=== PATIENT | male | born 1960 | race African-American/Black ===

== ENCOUNTER 2018-06-21 21:18 | Emergency (ER) | payer SELFPAY ==
[~2018-06-21] VITALS: Ht 170.2 cm; Wt 82.4 kg
[2018-06-22] MEDS ORDERED: PERCOCET 5/325M1 TAB PO (00:51)
[2018-06-22 01:12] VITALS: BP 138/89
== END 2018-06-22 01:12 | disposition home or self-care (01) | DRG 914 ==
LOC: ED 21:18
PROC: 2W3CX1Z Immobilization of Right Lower Arm using Splint (ICD-10-PCS; principal; 2018-06-22)
DX: S69.91XA Unspecified injury of right wrist, hand and finger(s), initial encounter (principal); M25.531 Pain in right wrist; M25.431 Effusion, right wrist; W01.0XXA Fall on same level from slipping, tripping and stumbling without subsequent striking against object, initial encounter; Y93.01 Activity, walking, marching and hiking; Y92.009 Unspecified place in unspecified non-institutional (private) residence as the place of occurrence of the external cause

== ENCOUNTER 2018-11-03 07:58 | Day surgery (SDC) | payer OTHER ==
[~2018-11-03] VITALS: Ht 167.6 cm; Wt 82.1 kg
[~2018-11-03 07:58] MED LIST: ASPIRIN81 MG PO; CLOPIDOGREL75 MG PO; NAPROXEN EC500 MG PO; PANTOPRAZOLE SO40 MG PO; PERCOCET 5/325M1 TAB PO; RANITIDINE300 MG PO; TOPROL XL25 M1 PO; ZOCOR20 M1 PO
[2018-11-03 08:26] LABS: BARBITURATES NEGATIVE (NEGATIVE); COCAINE NEGATIVE (NEGATIVE); METHADONE NEGATIVE (NEGATIVE); OXCYCODONE NEGATIVE (NEGATIVE); TETRAHYDROCANNABIONOL POSITIVE (NEGATIVE); TRICYLIC ANTIDEPRESSANTS NEGATIVE (NEGATIVE)
[2018-11-03 13:35] VITALS: BP 138/80
== END 2018-11-03 14:15 | disposition home or self-care (01) ==
LOC: ENDO 07:58
PROVIDERS: ATTEND Surgery
DX: D12.3 Benign neoplasm of transverse colon (principal); D12.5 Benign neoplasm of sigmoid colon; D12.8 Benign neoplasm of rectum; K57.31 Diverticulosis of large intestine without perforation or abscess with bleeding

== ENCOUNTER 2018-11-04 20:21 | Emergency (ER) | payer OTHER ==
[~2018-11-04] VITALS: Ht 170.2 cm; Wt 82.3 kg
[2018-11-04 21:11] LABS: HEMATOCRIT 43.9 % (39.0-50.0); HEMOGLOBIN 14.8 g/dl (14.0-18.0); IMMATURE GRANULOCYTES 0.4 % (0.0-5.0); MEAN CORPUSCULAR HGB 31.4 pG CALC (26.0-32.0); MEAN CORPUSCULAR HGB CONC 33.7 g/L CALC (32.0-36.0); NEUT# 10.98 thou/uL (1.82-7.42); RED BLOOD COUNT 4.72 mill/uL (4.70-6.10); RED CELL DISTRI WIDTH 13.7 % (11.5-15.5)
[2018-11-04 21:28] LABS: ALBUMIN 4.3 g/dL (3.2-5.0); ALKALINE PHOSPHATASE 92 u/l (38-126); AMYLASE 154 u/l (30-110); ANION GAP 14 (6-22 (CALC)); BILIRUBIN, TOTAL 0.8 mg/dL (0.0-1.4); BUN 18 mg/dL (9-20); BUN/CREATININE RATIO 17 (12-20 (CALC)); CARBON DIOXIDE 25 mmol/l (22-30); CHLORIDE 106 mmol/l (95-108); CREATININE 1.1 mg/dL (0.7-1.3); GFR > 60 ML/MIN (>=60 (CALC)); GFR FOR AFR.AMER. > 60 ML/MIN (>=60 (CALC)); LIPASE 529 u/l (23-300); SGOT/AST 34 u/l (17-59); SODIUM 141 mmol/l (137-146); TOTAL PROTEIN 7.7 g/dL (6.3-8.2)
[2018-11-04 23:13] VITALS: BP 130/71
== END 2018-11-04 23:13 | disposition left against medical advice (07) ==
LOC: ED 20:21
PROVIDERS: Emergency Medicine
DX: K85.90 Acute pancreatitis without necrosis or infection, unspecified (principal); Z91.19 Patient's noncompliance with other medical treatment and regimen
CPT/HCPCS: Q9967

== ENCOUNTER 2018-11-05 22:33 | Observation (INO) | payer OTHER ==
[~2018-11-05] VITALS: Ht 170.2 cm; Wt 79.8 kg
--- NOTE | 2018-11-05 22:37 | NUR ---
PATIENT TO ROOM 12 VIA WHEELCHAIR FOR BEDSIDE TRIAGE. PATIENT UNDRESSED INTO A GOWN, PLACED ON MONITOR. AWAITING MD HARRINGTON.
[2018-11-05 23:00] LABS: HEMATOCRIT 44.7 % (39.0-50.0); HEMOGLOBIN 15.1 g/dl (14.0-18.0); IMMATURE GRANULOCYTES 0.3 % (0.0-5.0); MEAN CELL VOLUME 93.7 fL CALC (80.0-100.0); MEAN CORPUSCULAR HGB 31.7 pG CALC (26.0-32.0); MEAN CORPUSCULAR HGB CONC 33.8 g/L CALC (32.0-36.0); NEUT# 3.64 thou/uL (1.82-7.42); RED BLOOD COUNT 4.77 mill/uL (4.70-6.10); RED CELL DISTRI WIDTH 13.7 % (11.5-15.5)
[2018-11-05 23:09] LABS: ALBUMIN 4.5 g/dL (3.2-5.0); ALKALINE PHOSPHATASE 82 u/l (38-126); AMYLASE 113 u/l (30-110); ANION GAP 14 (6-22 (CALC)); BUN 17 mg/dL (9-20); BUN/CREATININE RATIO 15 (12-20 (CALC)); CARBON DIOXIDE 28 mmol/l (22-30); CHLORIDE 104 mmol/l (95-108); CREATININE 1.1 mg/dL (0.7-1.3); GFR > 60 ML/MIN (>=60 (CALC)); GFR FOR AFR.AMER. > 60 ML/MIN (>=60 (CALC)); LIPASE 145 u/l (23-300); POTASSIUM 3.7 mmol/l (3.5-5.1); SODIUM 142 mmol/l (137-146); TOTAL PROTEIN 8.1 g/dL (6.3-8.2)
[2018-11-05 23:12] LABS: SGOT/AST 74 u/l (17-59)
--- NOTE | 2018-11-05 23:30 | NUR ---
RESTING COMFORTABLY, PAIN FREE.
--- NOTE | 2018-11-05 23:48 | NUR ---
SITTING UP IN BED USING CELL PHONE. NO DISTRESS. IV INFUSING WELL.
[2018-11-06 00:08] LABS: URINE BILIRUBIN - DIPSTICK NEGATIVE (NEGATIVE); URINE BLOOD DIPSTICK NEGATIVE (NEGATIVE); URINE COLOR YELLOW; URINE GLUCOSE - DIPSTICK NEGATIVE (NEGATIVE); URINE KETONE NEGATIVE (NEGATIVE); URINE LEUK ESTERASE NEGATIVE (NEGATIVE); URINE NITRITE - DIPSTICK NEGATIVE (Negative); URINE PH 7.5 (4.5-8.0); URINE PROTEIN - DIPSTICK NEGATIVE (NEG-TRACE); URINE SPECIFIC GRAVITY 1.025
--- NOTE | 2018-11-06 00:08 | NUR ---
USING CELL PHONE SITTING UP IN BED WITH NO C/O.
--- NOTE | 2018-11-06 00:19 | NUR ---
PT ARRIVED TO [facility] VIA STRETCHER ACCOMPANIED BY ER NURSE. PT ALERT AND ORIENTED X3, AMBULATORY. WEIGHT OBTAINED STANDING SCALE. PT AMBULATED TO BATHROOM. DISCUSSED POC. PT IN BED. IVF INFUSING. PT HAS MEDS FROM HOME INFORMED PT OF POLICY, PT STATES HE WANTS TO KEEP HIS MEDS IN THE ROOM BUT WILL NOT TAKE ANY MEDICATIONS, HIS NIECE WILL ARRIVE TOMORROW TO TAKE THEM HOME. PT STATES HE HAD A COLONOSCOPY ON 11/03 AND EVER SINCE THEN HE HAS HAD MULTIPLE ISSUES. TEDS APPLIED. 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 SWABBED R NARE, PLACED ON CONTACT PRECAUTIONS. ADMISSION ASSESSMENT COMPLETED, CALL LIGHT IN REACH,CONTINUE TO MONITOR.
--- NOTE | 2018-11-06 00:44 | NUR ---
PT STATES HIS PAIN IS 8/10. HIS PHYSICAL PRESENTATION DOES NOT CORRELATE WITH THIS. HE IS SITTING COMFORTABLY IN BED USING HIS CELL PHONE WITH A DECREASE IN BP AND HR.
--- NOTE | 2018-11-06 01:16 | NUR ---
Admission Note Report Given to: MAIK KAUFMAN Transported by: Wheelchair X Stretcher Transported with: X Nurse Transporter X Patent IV O2 Plant Controls Specialist
[2018-11-06 01:26] VITALS: BP 124/75
--- NOTE | 2018-11-06 02:14 | NUR ---
PT CALLED FOR ASSISTANCE TO BATHROOM. PT HAD BRIGHT RED LIQUID STOOL, PT STATES, "I DONT UNDERSTAND HOW AFTER MY COLONSCOPY IM HAVING PAIN AND BLOODY BOWEL MOVEMENTS". ORANGE BAND PLACED FOR CONTACT HX OF MRSA. HAT PLACED IN BATHROOM IN CASE OF ANOTHER BM TO SEND TO LAB. PT VERBALIZED UNDERSTANDING. CALL LIGHT IN REACH,CONTINUE TO MONITOR.
--- NOTE | 2018-11-06 03:51 | NUR ---
PT RESTING IN BED, NO SIGNS OF DISTRESS NOTED, RESP EVEN AND UNLABORED. PT MEDICATED FOR NAUSEA AND PAIN. CALL LIGHT IN REACH,CONTINUE TO MONITOR.
[2018-11-06 04:15] VITALS: BP 115/68
[2018-11-06 05:10] LABS: HEMATOCRIT 38.8 % (39.0-50.0); IMMATURE GRANULOCYTES 0.5 % (0.0-5.0); MEAN CELL VOLUME 95.8 fL CALC (80.0-100.0); MEAN CORPUSCULAR HGB 30.9 pG CALC (26.0-32.0); MEAN CORPUSCULAR HGB CONC 32.2 g/L CALC (32.0-36.0); NEUT# 4.96 thou/uL (1.82-7.42); RED BLOOD COUNT 4.05 mill/uL (4.70-6.10); RED CELL DISTRI WIDTH 13.5 % (11.5-15.5)
[2018-11-06 05:13] LABS: HEMOGLOBIN 12.5 g/dl (14.0-18.0)
[2018-11-06 05:31] LABS: ALKALINE PHOSPHATASE 63 u/l (38-126); ANION GAP 11 (6-22 (CALC)); BILIRUBIN, TOTAL 0.7 mg/dL (0.0-1.4); BUN 14 mg/dL (9-20); BUN/CREATININE RATIO 14 (12-20 (CALC)); CARBON DIOXIDE 25 mmol/l (22-30); CHLORIDE 108 mmol/l (95-108); GFR > 60 ML/MIN (>=60 (CALC)); GFR FOR AFR.AMER. > 60 ML/MIN (>=60 (CALC)); POTASSIUM 4.2 mmol/l (3.5-5.1); SGOT/AST 59 u/l (17-59); SODIUM 140 mmol/l (137-146)
[2018-11-06 05:32] LABS: ALBUMIN 3.3 g/dL (3.2-5.0); TOTAL PROTEIN 6.1 g/dL (6.3-8.2)
--- NOTE | 2018-11-06 07:00 | NUR ---
SHIFT CHANGE REPORT, PT AWAKE ALERT AND ORIENTED, C/O ABD PAIN AND BLOODY STOOLS, LARGE QUANTITLY BLOODY LIQUID OBSERVED IN TOILET, PT REPORTED HE HAS HAD AT LEAST 3 EPISODES ALREADY THIS THIS AM, IVF INFUSING, WILL CONTINUE TO MONITOR AND ADDRESS CONCERNS, CALL EDEN IN REACH.
--- NOTE | 2018-11-06 08:35 | NUR ---
DR MILLER NOTIFIED OF CONCERNS AND GAVE ORDERS, DR RAO NOTIFIED.
[2018-11-06 08:51] VITALS: BP 143/67
--- NOTE | 2018-11-06 09:10 | NUR ---
CALLED IN CONSULTATION TO AT [phone] REGARDING THIS PT. LEFT VOICEMAIL ON PHONE.
[2018-11-06 09:15] LABS: HEMATOCRIT 36.8 % (39.0-50.0); HEMOGLOBIN 12.4 g/dl (14.0-18.0)
--- NOTE | 2018-11-06 10:00 | NUR ---
DR RAO CALLED AND GAVE ORDERS, PT INFORMED OF ORDERS, AGGRAVATED AND RESENTFUL IN CONSENTING TO PROCEDURE BUT EDUCATED ON BENEFITS, ANESTHESIOLOGIST TEAM VISITING AT THIS TIME AND INFORMING/EDUCATING PT, WILL CONTINUE TO MONITOR.
[2018-11-06 10:21] LABS: HEMATOCRIT 40.2 % (39.0-50.0); HEMOGLOBIN 13.2 g/dl (14.0-18.0)
[2018-11-06] MEDS ORDERED: DICYCLOMINE HCL20 MG PO (10:37)
--- NOTE | 2018-11-06 12:04 | NUR ---
PT INFORMED OF PROCEDURE, RELUCTANT TO HAVE IT DONE BUT AGREED, JOSE FROM OR HERE RECEIVING PT AT THIS TIME, PT AMBULATED TO STRETCHER AND TRANSPORTED OFF UNIT TO OR.
[2018-11-06] MEDS ORDERED: ZOFRAN8 MG PO (12:18)
--- NOTE | 2018-11-06 14:54 | NUR ---
JUST RETURNED FROM OR VIA STRETCHER ACCOMPANIED BY OR STAFF MARGARET, REPORT RECEIVED FROM MARGARET. PT ALERT AND ORIENTED, REQUESTING TO HAVE SHOWER AT THIS TIME, ADVISED SHOWERING RIGHT AFTER RETURN FROM PROCEDURE IS NOT RECOMMENDED AND THAT VITAL SIGNS NEEDED TO BE MEASURED; HOWEVER, HE WAS ADAMANT ABOUT TAKING SHOWER AND SET HIMSELF IN BR, SHOWERED, AND IS NOW OUT WITH NO ADVERSE EFFECT AT THIS TIME. SETTLED IN BED NOW, WILL CONTINUE TO MONITOR.
--- NOTE | 2018-11-06 16:15 | NUR ---
PT WAS RECONNECTED TO CONTINUOUS MONITORING OF VITAL SIGNS BUT WAS FOUND DISCONNECTED AT THIS TIME, AMBULATES TO BR WITHOUT INFORMING STAFF, EDUCATED ON REASON FOR PROCEDURES BUT STATES HE LIKES TO BE INDEPENDENT, ADVISED TO HAVE VITAL SIGN MEASUREMENTS FOR OWN SAFETY.
[2018-11-06 16:24] VITALS: BP 163/96
[2018-11-06 17:50] LABS: HEMATOCRIT 40.4 % (39.0-50.0); HEMOGLOBIN 13.1 g/dl (14.0-18.0)
[2018-11-06 18:38] VITALS: BP 156/89
--- NOTE | 2018-11-06 18:50 | NUR ---
PT JUST INQUIRED ABOUT HOME MEDS HE RECENTLY GOT FROM HIS MD AFTER FIRST PROCEDURE, HE HAS MEDS AT BEDSIDE IN BAG, ADVISED NOT TO TAKE THOSE MEDS THEY WOULD HAVE TO BE ORDERED BY HOSP. MD, REFUSED TO HAVE MEDS SENT TO PHARMACY AND WANTS TO KEEP THEM, NIGHT RN WILL CONTINUE CARE.
--- NOTE | 2018-11-06 20:40 | NUR ---
PT RESTING IN BED WATCHING TV AT THIS TIME. PT IS PLEASANT AND HAS A MORE OPEN ATTITUDE. PT C/O 10/10 PAIN AT THIS TIME AND REQUESTING PAIN MEDICATION. MEDICATED PER ORDER. ASSESMENT COMPLETED AT THIS TIME. IV INFUSING WELL. NO OTHER NEEDS AT THIS TIME. CALL EDEN IN REACH. WILL CONTINUE TO MONITOR.
[2018-11-06 20:44] VITALS: BP 143/90
[2018-11-06 23:28] LABS: HEMATOCRIT 41.4 % (39.0-50.0); HEMOGLOBIN 13.7 g/dl (14.0-18.0)
[2018-11-07] VITALS (7 sets, daily range): BP systolic 128–156; BP diastolic 78–90
--- NOTE | 2018-11-07 03:00 | NUR ---
PT REFUSING IV FLUIDS AT THIS TIME. ENCOURAGED PT TO STAY ON FLUIDS DUE TO NPO STATUS, PT STILL REFUSED PT STATING HE WAS TIRED OF PEEING SO MUCH AND HE JUST WANTED TO BE UNHOOKED. PT DISCONECTED AT THIS TIME. NO OTHER NEEDS A THIS TIME. CALL EDEN IN REACH. WILL CONTINUE TO MONITOR.
[2018-11-07 05:06] LABS: HEMOGLOBIN 12.7 g/dl (14.0-18.0)
--- NOTE | 2018-11-07 05:06 | NUR ---
RECIEVED REPORT FROM DAY NURSE. DAY NURSE TOLD PT THAT BUFFET MANAGER WOULD GET HIS HOME MEDS TAKEN CARE OF. BUFFET MANAGER STATED SHE WOULD TRY HER BEST BUT COULDNT MAKE ANY PROMISES. PT STATED WITH THAT ATTITUDE I MAY WANT ANOTHER NURSE. BUFFET MANAGER THEN EXPLAINED TO PT THAT SHE DIDNT WANT TO GIVE FALSE HOPE THAT SHE WOULD LINDSAY BLE TO PROVIDE ALL THE MEDS HE TAKES AT HOME FOR IT WASNT UP TO ME IT WAS UP TO THE DR BUT I AGAIN WOULD TRY MY BEST BUT WAS WELCOME TO HAVE ANOTHER NURSE IF HE WOULD LIKE. PT STATED NO THAT HE WOULD GIVE THE BUFFET MANAGER A CHANCE. NO OTHER NEEDS AT THIS TIME. CALL MEEK IN REACH. WILL CONTINUE TO MONITOR.
--- NOTE | 2018-11-07 07:05 | NUR ---
PT REPORT RECIEVED FROM MAGGIE WILSON. PT SLEEPING. NO S/S OF DISTRESS. CALL LIGHT IN REACH. WILL CONTINUE TO MONITOR.
--- NOTE | 2018-11-07 08:36 | NUR ---
PT A/O X3. RESP EVEN AND UNLABORED. LUNG SOUNDS CLEAR. BOWEL SOUNDS ACTIVE X4. PT C/O ABDOMINAL PAIN 10 OUT OF 10. DISCUSSED MEDICATION ADMINISTRATION W/ PT. PT VERBALIZES UNDERSTANDING. REPOSITIONED FOR COMFORT. STRONG RADIAL AND PEDAL PULSES. #18 RAC SL. PT IS NPO AND REFUSES TO HAVE FLUIDS INFUSING. PT STATES "THOSE FLUIDS HAVE ME PEEING AND UP LIKE A RACE HORSE". DISCUSSED THE NEED FOR FLUIDS BUT PT IS PERSISTENT AND REFUSES TO HAVE THEM; MONALISA GREGG MADE AWARE. SKIN INTACT. PT DENIES ANY FURTHER NEEDS. POC DISCUSSED. SAFETY PRECAUTIONS IN PLACE. CALL LIGHT IN REACH. WILL CONTINUE TO MONITOR.
--- NOTE | 2018-11-07 11:56 | NUR ---
PT EATING LUNCH. NO C/O PAIN OR NEEDS. CALL LIGHT IN REACH. WILL CONTINUE TO MONITOR.
[2018-11-07 12:09] LABS: HEMOGLOBIN 13.6 g/dl (14.0-18.0)
--- NOTE | 2018-11-07 13:05 | NUR ---
D/C INSTRUCTIONS DISCUSSED W/ PT. PT STATES UNDERSTANDING. IV REMOVED;CATHETER INTACT. PT DRESSED. AWAITING WHEELCHAIR
--- NOTE | 2018-11-07 13:15 | NUR ---
Discharge instructions given. Patient verbalizes understanding of same. Discharged in stable condition via Wheelchair to Home with family. All belongings sent with pt.
== END 2018-11-07 13:05 | disposition home or self-care (01) ==
LOC: ED 22:33 → ED-I 11-06 00:10 → ED 11-06 00:48 → MS2 11-06 00:49
PROVIDERS: Emergency Medicine; Nurse Practitioner Family; Surgery; ADMIT Internal Medicine; ATTEND Internal Medicine
DX: K92.2 Gastrointestinal hemorrhage, unspecified (principal); K29.70 Gastritis, unspecified, without bleeding; K29.80 Duodenitis without bleeding; I10 Essential (primary) hypertension; I25.10 Atherosclerotic heart disease of native coronary artery without angina pectoris; Z95.5 Presence of coronary angioplasty implant and graft; Z86.010 Personal history of colon polyps; Z79.02 Long term (current) use of antithrombotics/antiplatelets; Z79.82 Long term (current) use of aspirin; Z87.11 Personal history of peptic ulcer disease
CPT/HCPCS: G0378; S0164

== ENCOUNTER 2019-03-22 | Emergency (ER) | payer OTHER ==
[~2019-03-22] MED LIST changes: +DICYCLOMINE HCL20 MG PO; +PANTOPRAZOLE SO40 M1 PO; -PANTOPRAZOLE SO40 MG PO; +ZOFRAN8 MG PO
[2019-03-22] MEDS ORDERED: FAMOTIDINE40 M1 PO (14:16)
== END 2019-03-22 14:00 | disposition home or self-care (01) ==
DX: M19.032 Primary osteoarthritis, left wrist (principal); I10 Essential (primary) hypertension

== ENCOUNTER 2019-03-28 | Emergency (ER) | payer OTHER ==
[~2019-03-28] MED LIST changes: +FAMOTIDINE40 M1 PO
[2019-03-28] MEDS ORDERED: FIORICET PO (19:34)
== END 2019-03-28 19:51 | disposition home or self-care (01) ==
DX: R51 Headache (principal); I10 Essential (primary) hypertension

== ENCOUNTER 2019-11-04 22:34 | Emergency (ER) | payer OTHER ==
[~2019-11-04] VITALS: Ht 170.2 cm; Wt 78.6 kg
[~2019-11-04 22:34] MED LIST changes: +FIORICET PO
[2019-11-04] MEDS ORDERED: GABAPENTIN300 M2 (22:55)
[2019-11-05] MEDS ORDERED: IBUPROFEN600 MG PO (00:12)
[2019-11-05 00:25] VITALS: BP 134/72
== END 2019-11-05 00:28 | disposition home or self-care (01) ==
LOC: ED 22:34
DX: S60.022A Contusion of left index finger without damage to nail, initial encounter (principal); I10 Essential (primary) hypertension; W20.8XXA Other cause of strike by thrown, projected or falling object, initial encounter; Y93.89 Activity, other specified; Y92.009 Unspecified place in unspecified non-institutional (private) residence as the place of occurrence of the external cause

== ENCOUNTER 2019-12-13 07:23 | Emergency (ER) | payer OTHER ==
[~2019-12-13] VITALS: Ht 170.2 cm; Wt 75.0 kg
[~2019-12-13 07:23] MED LIST changes: +GABAPENTIN300 M2; +IBUPROFEN600 MG PO
[2019-12-13 07:59] LABS: GFR 57 ML/MIN (>=60 (CALC)); GFR FOR AFR.AMER. > 60 ML/MIN (>=60 (CALC))
[2019-12-13 08:01] LABS: IMMATURE GRANULOCYTES 0.6 % (0.0-5.0); MEAN CORPUSCULAR HGB 31.7 pG CALC (26.0-32.0); NEUT# 3.75 thou/uL (1.82-7.42); RED BLOOD COUNT 5.02 mill/uL (4.70-6.10); RED CELL DISTRI WIDTH 13.3 % (11.5-15.5)
[2019-12-13 08:05] LABS: HEMATOCRIT 48.2 % (39.0-50.0); HEMOGLOBIN 15.9 g/dl (14.0-18.0)
[2019-12-13 08:16] LABS: ALKALINE PHOSPHATASE 87 u/l (38-126); ANION GAP 13 (6-22 (CALC)); BILIRUBIN, TOTAL 0.6 mg/dL (0.0-1.4); BUN 13 mg/dL (9-20); BUN/CREATININE RATIO 11 (12-20 (CALC)); CARBON DIOXIDE 25 mmol/l (22-30); CHLORIDE 108 mmol/l (95-108); CREATININE 1.2 mg/dL (0.7-1.3); ETHYL ALCOHOL 0 mg/dl (0-30); GFR > 60 ML/MIN (>=60 (CALC)); GFR FOR AFR.AMER. > 60 ML/MIN (>=60 (CALC)); LIPASE 97 u/l (23-300); POTASSIUM 3.7 mmol/l (3.5-5.1); SGOT/AST 24 u/l (17-59); SODIUM 143 mmol/l (137-146)
[2019-12-13 08:29] LABS: ALBUMIN 4.7 g/dL (3.2-5.0); TOTAL PROTEIN 8.2 g/dL (6.3-8.2)
[2019-12-13 09:44] LABS: URINE BILIRUBIN - DIPSTICK NEGATIVE (NEGATIVE); URINE BLOOD DIPSTICK NEGATIVE (NEGATIVE); URINE COLOR YELLOW; URINE GLUCOSE - DIPSTICK NEGATIVE (NEGATIVE); URINE KETONE NEGATIVE (NEGATIVE); URINE LEUK ESTERASE NEGATIVE (NEGATIVE); URINE NITRITE - DIPSTICK NEGATIVE (Negative); URINE PROTEIN - DIPSTICK NEGATIVE (NEG-TRACE); URINE SPECIFIC GRAVITY 1.025; URINE UROBILINOGEN - DIPSTICK 0.2 E.U./dL (0.2)
[2019-12-13] MEDS ORDERED: HYOSCYAMINE0.125 M3 PO (10:05)
[2019-12-13] MEDS ORDERED: PHENERGAN25 MG/TAB PO (10:05)
[2019-12-13 10:15] VITALS: BP 153/98
== END 2019-12-13 10:50 | disposition home or self-care (01) ==
LOC: ED 07:23
PROVIDERS: Family Medicine
DX: R10.13 Epigastric pain (principal); I10 Essential (primary) hypertension

== ENCOUNTER 2020-03-27 10:55 | Emergency (ER) | payer MEDICARE, OTHER ==
[~2020-03-27] VITALS: Ht 170.2 cm; Wt 75.0 kg
[~2020-03-27 10:55] MED LIST changes: +HYOSCYAMINE0.125 M3 PO; +PHENERGAN25 MG/TAB PO
[2020-03-27] MEDS ORDERED: PLAVIX75 MG PO (11:33)
[2020-03-27] MEDS ORDERED: METOPROL TAR25 MG PO (11:34)
[2020-03-27] MEDS ORDERED: EQ ASA CHLD81 MG PO (11:34)
[2020-03-27] MEDS ORDERED: SIMVASTATIN10 MG PO (11:34)
[2020-03-27] MEDS ORDERED: PROTONIX40 M2 PO (11:34)
[2020-03-27] MEDS ORDERED: FAMOTIDINE20 M1 PO (11:35)
[2020-03-27 13:00] VITALS: BP 148/72
== END 2020-03-27 13:00 | disposition home or self-care (01) ==
LOC: ED 10:55
PROC: 2W3CX1Z Immobilization of Right Lower Arm using Splint (ICD-10-PCS; principal; 2020-03-27)
DX: S62.306A Unspecified fracture of fifth metacarpal bone, right hand, initial encounter for closed fracture (principal); S60.221A Contusion of right hand, initial encounter; I10 Essential (primary) hypertension; W40.8XXA Explosion of other specified explosive materials, initial encounter; Y93.89 Activity, other specified; Y92.008 Other place in unspecified non-institutional (private) residence as the place of occurrence of the external cause

== ENCOUNTER 2020-04-03 19:53 | Emergency (ER) | payer MEDICARE, OTHER ==
[~2020-04-03] VITALS: Ht 170.2 cm; Wt 80.0 kg
[~2020-04-03 19:53] MED LIST changes: +EQ ASA CHLD81 MG PO; +FAMOTIDINE20 M1 PO; +METOPROL TAR25 MG PO; +PLAVIX75 MG PO; +PROTONIX40 M2 PO; +SIMVASTATIN10 MG PO
[2020-04-03 20:39] LABS: HEMATOCRIT 46.7 % (39.0-50.0); HEMOGLOBIN 15.3 g/dl (14.0-18.0); IMMATURE GRANULOCYTES 0.5 % (0.0-5.0); MEAN CELL VOLUME 94.9 fL CALC (80.0-100.0); MEAN CORPUSCULAR HGB 31.1 pG CALC (26.0-32.0); MEAN CORPUSCULAR HGB CONC 32.8 g/dL CAL (32.0-36.0); NEUT# 6.37 thou/uL (1.82-7.42); RED BLOOD COUNT 4.92 mill/uL (4.70-6.10); RED CELL DISTRI WIDTH 13.5 % (11.5-15.5)
[2020-04-03 20:52] LABS: ALBUMIN 5.1 g/dL (3.2-5.0); ALKALINE PHOSPHATASE 95 u/l (38-126); AMYLASE 94 u/l (30-110); ANION GAP 15 (6-22 (CALC)); BUN 15 mg/dL (9-20); BUN/CREATININE RATIO 15 (12-20 (CALC)); CARBON DIOXIDE 22 mmol/l (22-30); CHLORIDE 106 mmol/l (95-108); CPK 296 u/l (52-200); ETHYL ALCOHOL 0 mg/dl (0-30); GFR > 60 ML/MIN (>=60 (CALC)); GFR FOR AFR.AMER. > 60 ML/MIN (>=60 (CALC)); LIPASE 45 u/l (23-300); POTASSIUM 3.4 mmol/l (3.5-5.1); SGOT/AST 31 u/l (17-59); SODIUM 140 mmol/l (137-146); TOTAL PROTEIN 8.8 g/dL (6.3-8.2)
[2020-04-03 20:57] LABS: BILIRUBIN, TOTAL 1.2 mg/dL (0.0-1.4)
[2020-04-03 20:59] LABS: ACT PARTIAL THROMBO TIME 19.6 SECONDS (20.0-32.5); PROTHROMBIN TIME 10.4 SECONDS (9.0-12.5)
[2020-04-03 22:35] LABS: URINE BILIRUBIN - DIPSTICK NEGATIVE (NEGATIVE); URINE BLOOD DIPSTICK NEGATIVE (NEGATIVE); URINE COLOR YELLOW; URINE GLUCOSE - DIPSTICK NEGATIVE (NEGATIVE); URINE KETONE 15 mg/dL (NEGATIVE); URINE LEUK ESTERASE NEGATIVE (NEGATIVE); URINE NITRITE - DIPSTICK NEGATIVE (Negative); URINE PH 8.5 (4.5-8.0); URINE PROTEIN - DIPSTICK NEGATIVE (NEG-TRACE); URINE SPECIFIC GRAVITY 1.015; URINE UROBILINOGEN - DIPSTICK 0.2 E.U./dL (0.2)
[2020-04-03] MEDS ORDERED: HYDROCO/APAP1 TA9 PO (23:09)
[2020-04-03] MEDS ORDERED: ZOFRAN4 MG/TAB PO (23:09)
[2020-04-03 23:25] VITALS: BP 150/79
== END 2020-04-03 23:00 | disposition home or self-care (01) ==
LOC: ED 19:53
DX: R10.84 Generalized abdominal pain (principal); R11.2 Nausea with vomiting, unspecified; R19.7 Diarrhea, unspecified; I10 Essential (primary) hypertension; Z95.5 Presence of coronary angioplasty implant and graft; Z20.822 Contact with and (suspected) exposure to COVID-19
CPT/HCPCS: Q9967; S0164

== ENCOUNTER 2020-12-14 17:29 | Emergency (ER) | payer MEDICARE, OTHER ==
[~2020-12-14] VITALS: Ht 170.2 cm; Wt 90.0 kg
[~2020-12-14 17:29] MED LIST changes: +HYDROCO/APAP1 TA9 PO; +ZOFRAN4 MG/TAB PO
[2020-12-14 18:52] LABS: HEMATOCRIT 51.3 % (39.0-50.0); HEMOGLOBIN 16.9 g/dl (14.0-18.0); IMMATURE GRANULOCYTES 0.5 % (0.0-5.0); MEAN CELL VOLUME 97.5 fL CALC (80.0-100.0); MEAN CORPUSCULAR HGB 32.1 pG CALC (26.0-32.0); MEAN CORPUSCULAR HGB CONC 32.9 g/dL CAL (32.0-36.0); NEUT# 9.92 thou/uL (1.82-7.42); RED BLOOD COUNT 5.26 mill/uL (4.70-6.10); RED CELL DISTRI WIDTH 13.9 % (11.5-15.5)
[2020-12-14 20:15] LABS: ALBUMIN 4.6 g/dL (3.2-5.0); ALKALINE PHOSPHATASE 86 u/l (38-126); AMYLASE 112 u/l (30-110); ANION GAP 13 (6-22 (CALC)); BUN 16 mg/dL (9-20); BUN/CREATININE RATIO 15 (12-20 (CALC)); CARBON DIOXIDE 24 mmol/l (22-30); CHLORIDE 110 mmol/l (95-108); CREATININE 1.1 mg/dL (0.7-1.3); GFR > 60 ML/MIN (>=60 (CALC)); GFR FOR AFR.AMER. > 60 ML/MIN (>=60 (CALC)); LIPASE 69 u/l (23-300); POTASSIUM 4.1 mmol/l (3.5-5.1); SGOT/AST 30 u/l (17-59); SODIUM 143 mmol/l (137-146); TOTAL PROTEIN 8.1 g/dL (6.3-8.2)
[2020-12-14 20:18] LABS: BILIRUBIN, TOTAL 1.1 mg/dL (0.0-1.4)
[2020-12-14 20:27] LABS: MYOGLOBIN 132 ng/mL (0 - 121)
[2020-12-14 21:55] LABS: URINE BILIRUBIN - DIPSTICK NEGATIVE (NEGATIVE); URINE BLOOD DIPSTICK NEGATIVE (NEGATIVE); URINE COLOR YELLOW; URINE GLUCOSE - DIPSTICK NEGATIVE (NEGATIVE); URINE KETONE NEGATIVE (NEGATIVE); URINE LEUK ESTERASE NEGATIVE (NEGATIVE); URINE PROTEIN - DIPSTICK NEGATIVE (NEG-TRACE); URINE SPECIFIC GRAVITY <=1.005; URINE UROBILINOGEN - DIPSTICK 0.2 E.U./dL (0.2)
[2020-12-14 21:57] LABS: URINE NITRITE - DIPSTICK NEGATIVE (Negative)
[2020-12-14] MEDS ORDERED: ONDANSETRON4 MG PO (22:23)
[2020-12-14 22:30] VITALS: BP 165/66
== END 2020-12-14 22:45 | disposition home or self-care (01) ==
LOC: ED 17:29
PROVIDERS: Emergency Medicine
DX: K29.70 Gastritis, unspecified, without bleeding (principal); I10 Essential (primary) hypertension; T50.906A Underdosing of unspecified drugs, medicaments and biological substances, initial encounter; Z91.120 Patient's intentional underdosing of medication regimen due to financial hardship; Z20.822 Contact with and (suspected) exposure to COVID-19
CPT/HCPCS: Q9967; S0164

== ENCOUNTER 2021-02-14 17:18 | Emergency (ER) | payer MEDICARE, OTHER ==
[~2021-02-14] VITALS: Ht 170.2 cm; Wt 78.0 kg
[~2021-02-14 17:18] MED LIST changes: +ONDANSETRON4 MG PO
[2021-02-14 18:26] LABS: HEMATOCRIT 48.4 % (39.0-50.0); HEMOGLOBIN 16.3 g/dl (14.0-18.0); IMMATURE GRANULOCYTES 1.5 % (0.0-5.0); MEAN CORPUSCULAR HGB 32.3 pG CALC (26.0-32.0); MEAN CORPUSCULAR HGB CONC 33.7 g/dL CAL (32.0-36.0); NEUT# 7.69 thou/uL (1.82-7.42); RED BLOOD COUNT 5.04 mill/uL (4.70-6.10); RED CELL DISTRI WIDTH 12.7 % (11.5-15.5)
[2021-02-14 18:56] LABS: ALBUMIN 4.5 g/dL (3.2-5.0); ALKALINE PHOSPHATASE 92 u/l (38-126); AMYLASE 88 u/l (30-110); ANION GAP 14 (6-22 (CALC)); BUN 16 mg/dL (9-20); BUN/CREATININE RATIO 14 (12-20 (CALC)); CARBON DIOXIDE 22 mmol/l (22-30); CHLORIDE 108 mmol/l (95-108); CREATININE 1.1 mg/dL (0.7-1.3); ETHYL ALCOHOL 0 mg/dl (0-30); GFR > 60 ML/MIN (>=60 (CALC)); GFR FOR AFR.AMER. > 60 ML/MIN (>=60 (CALC)); LIPASE 28 u/l (23-300); SGOT/AST 27 u/l (17-59); SODIUM 141 mmol/l (137-146); TOTAL PROTEIN 8.2 g/dL (6.3-8.2)
[2021-02-14 18:59] LABS: BILIRUBIN, TOTAL 1.5 mg/dL (0.0-1.4)
[2021-02-14 20:21] LABS: URINE BILIRUBIN - DIPSTICK NEGATIVE (NEGATIVE); URINE BLOOD DIPSTICK TRACE-INTACT (NEGATIVE); URINE COLOR YELLOW; URINE GLUCOSE - DIPSTICK NEGATIVE (NEGATIVE); URINE KETONE 40 mg/dL (NEGATIVE); URINE LEUK ESTERASE NEGATIVE (NEGATIVE); URINE PH 8.5 (4.5-8.0); URINE PROTEIN - DIPSTICK NEGATIVE (NEG-TRACE); URINE UROBILINOGEN - DIPSTICK 0.2 E.U./dL (0.2)
[2021-02-14 20:30] LABS: URINE NITRITE - DIPSTICK NEGATIVE (Negative)
[2021-02-14] MEDS ORDERED: PROTONIX40 M2 PO (21:11)
[2021-02-14 21:31] VITALS: BP 155/80
[2021-02-15] MEDS ORDERED: PROTONIX40 M2 PO (12:31)
== END 2021-02-14 21:33 | disposition home or self-care (01) ==
LOC: ED 17:18
DX: K29.70 Gastritis, unspecified, without bleeding (principal); I10 Essential (primary) hypertension; T50.906A Underdosing of unspecified drugs, medicaments and biological substances, initial encounter; Z91.120 Patient's intentional underdosing of medication regimen due to financial hardship; Z20.822 Contact with and (suspected) exposure to COVID-19
CPT/HCPCS: Q9967; S0164

== ENCOUNTER 2021-06-07 07:23 | Observation (INO) | payer MEDICARE, MEDICAID ==
[~2021-06-07] VITALS: Ht 170.2 cm; Wt 68.1 kg
[2021-06-07] VITALS (28 sets, daily range): BP systolic 93–161; BP diastolic 49–95
[~2021-06-07 07:23] MED LIST changes: -METOPROL TAR25 MG PO
[2021-06-07 08:00] LABS: IMMATURE GRANULOCYTES 0.4 % (0.0-5.0); MEAN CORPUSCULAR HGB 32.8 pG CALC (26.0-32.0); MEAN CORPUSCULAR HGB CONC 32.8 g/dL CAL (32.0-36.0); PLATELET COUNT 146 thou/uL (130-400); RED BLOOD COUNT 3.14 mill/uL (4.70-6.10); RED CELL DISTRI WIDTH 13.2 % (11.5-15.5)
[2021-06-07 08:24] LABS: AMYLASE 86 u/l (30-110); BUN 9 mg/dL (9-20); BUN/CREATININE RATIO 16 (12-20 (CALC)); CARBON DIOXIDE 18 mmol/l (22-30); CREATININE 0.6 mg/dL (0.7-1.3); ETHYL ALCOHOL 0 mg/dl (0-30); GFR > 60 ML/MIN (>=60 (CALC)); GFR FOR AFR.AMER. > 60 ML/MIN (>=60 (CALC)); LIPASE 90 u/l (23-300); SGOT/AST 15 u/l (17-59); SODIUM 145 mmol/l (137-146)
[2021-06-07 08:31] LABS: ALKALINE PHOSPHATASE 43 u/l (38-126); ANION GAP 3 (6-22 (CALC)); BILIRUBIN, TOTAL 0.3 mg/dL (0.0-1.4); CHLORIDE 126 mmol/l (95-108); TOTAL PROTEIN 4.1 g/dL (6.3-8.2)
[2021-06-07 08:39] LABS: HEMATOCRIT 31.4 % (39.0-50.0); HEMOGLOBIN 10.3 g/dl (14.0-18.0); MANUAL DIFFERENTIAL YES
[2021-06-07 09:54] LABS: URINE BILIRUBIN - DIPSTICK NEGATIVE (NEGATIVE); URINE BLOOD DIPSTICK NEGATIVE (NEGATIVE); URINE COLOR YELLOW; URINE GLUCOSE - DIPSTICK NEGATIVE (NEGATIVE); URINE KETONE NEGATIVE (NEGATIVE); URINE LEUK ESTERASE NEGATIVE (NEGATIVE); URINE PH 8.5 (4.5-8.0); URINE PROTEIN - DIPSTICK TRACE mg/dL (NEG-TRACE); URINE SPECIFIC GRAVITY 1.025; URINE UROBILINOGEN - DIPSTICK 0.2 E.U./dL (0.2)
[2021-06-07 10:01] LABS: URINE NITRITE - DIPSTICK NEGATIVE (Negative)
[2021-06-07 11:16] LABS: ACT PARTIAL THROMBO TIME 25.2 SECONDS (20.0-32.5); INTERNATIONAL NORMALIZED RATIO 1.1 RATIO (0.7-1.3); PROTHROMBIN TIME 11.2 SECONDS (9.0-12.5)
[2021-06-07 16:09] LABS: BUN 10 mg/dL (9-20); BUN/CREATININE RATIO 11 (12-20 (CALC)); CREATININE 0.9 mg/dL (0.7-1.3); GFR > 60 ML/MIN (>=60 (CALC)); GFR FOR AFR.AMER. > 60 ML/MIN (>=60 (CALC)); SODIUM 139 mmol/l (137-146)
[2021-06-07 16:12] LABS: ANION GAP 9 (6-22 (CALC)); CARBON DIOXIDE 26 mmol/l (22-30); CHLORIDE 109 mmol/l (95-108); MAGNESIUM 2.4 mg/dL (1.6-2.3); POTASSIUM 4.5 mmol/l (3.5-5.1)
[2021-06-08] VITALS (11 sets, daily range): BP systolic 115–138; BP diastolic 69–87
[2021-06-08 05:33] LABS: MEAN CELL VOLUME 97.1 fL CALC (80.0-100.0); MEAN CORPUSCULAR HGB 32.4 pG CALC (26.0-32.0); MEAN CORPUSCULAR HGB CONC 33.4 g/dL CAL (32.0-36.0); RED BLOOD COUNT 4.13 mill/uL (4.70-6.10); RED CELL DISTRI WIDTH 13.3 % (11.5-15.5)
[2021-06-08 05:38] LABS: HEMATOCRIT 40.1 % (39.0-50.0); HEMOGLOBIN 13.4 g/dl (14.0-18.0)
[2021-06-08 05:54] LABS: ANION GAP 5 (6-22 (CALC)); BUN 10 mg/dL (9-20); BUN/CREATININE RATIO 11 (12-20 (CALC)); CARBON DIOXIDE 27 mmol/l (22-30); CHLORIDE 108 mmol/l (95-108); CREATININE 0.9 mg/dL (0.7-1.3); GFR > 60 ML/MIN (>=60 (CALC)); GFR FOR AFR.AMER. > 60 ML/MIN (>=60 (CALC)); MAGNESIUM 1.9 mg/dL (1.6-2.3); POTASSIUM 3.9 mmol/l (3.5-5.1); SGOT/AST 22 u/l (17-59); SODIUM 137 mmol/l (137-146)
[2021-06-08 05:58] LABS: ALBUMIN 3.4 g/dL (3.2-5.0); ALKALINE PHOSPHATASE 66 u/l (38-126); BILIRUBIN, TOTAL 1.2 mg/dL (0.0-1.4); TOTAL PROTEIN 6.1 g/dL (6.3-8.2)
[2021-06-08] MEDS ORDERED: ONDANSETRON4 MG PO ×2 (07:19→09:08)
[2021-06-08] MEDS ORDERED: FAMOTIDINE20 M1 PO (07:20)
[2021-06-08] MEDS ORDERED: CARAFATE1 GM PO (09:08)
== END 2021-06-08 10:00 | disposition home or self-care (01) ==
LOC: ED 07:23 → ED-I 10:20 → ED 10:45 → ICU 10:46
PROVIDERS: ADMIT Internal Medicine; ATTEND Internal Medicine
PROC: 02HV33Z Insertion of Infusion Device into Superior Vena Cava, Percutaneous Approach (ICD-10-PCS; principal; 2021-06-07)
DX: R11.2 Nausea with vomiting, unspecified (principal); R19.7 Diarrhea, unspecified; R10.13 Epigastric pain; E87.6 Hypokalemia; E83.51 Hypocalcemia; E83.42 Hypomagnesemia; E87.2 Acidosis; K29.70 Gastritis, unspecified, without bleeding; I10 Essential (primary) hypertension; I25.10 Atherosclerotic heart disease of native coronary artery without angina pectoris; F43.10 Post-traumatic stress disorder, unspecified; Z87.11 Personal history of peptic ulcer disease; Z90.49 Acquired absence of other specified parts of digestive tract; Z79.899 Other long term (current) drug therapy; Z20.822 Contact with and (suspected) exposure to COVID-19
CPT/HCPCS: J1650; J3475; Q9967; S0164

== ENCOUNTER 2022-06-12 07:43 | Emergency (ER) | payer MEDICARE, MEDICAID ==
[~2022-06-12] VITALS: Ht 170.2 cm; Wt 153.0 kg
[~2022-06-12 07:43] MED LIST changes: +CARAFATE1 GM PO
[2022-06-12 08:23] LABS: BASO% 0.4 % (0-3); EOS% 1.6 % (0-8); HEMOGLOBIN 15.8 g/dl (14.0-18.0); LYMPH% 38.9 % (15-41); MEAN CELL VOLUME 97.4 fL CALC (80.0-100.0); MEAN CORPUSCULAR HGB 31.5 pG CALC (26.0-32.0); MEAN CORPUSCULAR HGB CONC 32.3 g/dL CAL (32.0-36.0); MONO% 9.4 % (2-13); NEUT# 4.86 thou/uL (1.82-7.42); NEUT% 48.7 % (42-76); RED BLOOD COUNT 5.02 mill/uL (4.70-6.10); RED CELL DISTRI WIDTH 13.4 % (11.5-15.5)
[2022-06-12 08:25] LABS: HEMATOCRIT 48.9 % (39.0-50.0)
[2022-06-12 08:40] LABS: ALBUMIN 4.7 g/dL (3.2-5.0); ALKALINE PHOSPHATASE 74 u/l (38-126); BUN 20 mg/dL (9-20); BUN/CREATININE RATIO 18 (12-20 (CALC)); CHLORIDE 104 mmol/l (95-108); CREATININE 1.1 mg/dL (0.7-1.3); GFR FOR AFR.AMER. > 60 ML/MIN (>=60 (CALC)); GFR OTHER RACES > 60 ML/MIN (>=60 (CALC)); LIPASE 1081 u/l (23-300); POTASSIUM 4.4 mmol/l (3.5-5.1); SGOT/AST 32 u/l (17-59); SODIUM 140 mmol/l (137-146); TOTAL PROTEIN 7.8 g/dL (6.3-8.2)
[2022-06-12 08:41] LABS: ANION GAP 10 (6-22 (CALC)); BILIRUBIN, TOTAL 0.6 mg/dL (0.2-1.3); CARBON DIOXIDE 30 mmol/l (22-30)
[2022-06-12 10:05] LABS: URINE BILIRUBIN - DIPSTICK NEGATIVE (NEGATIVE); URINE BLOOD DIPSTICK NEGATIVE (NEGATIVE); URINE COLOR YELLOW; URINE GLUCOSE - DIPSTICK NEGATIVE (NEGATIVE); URINE KETONE NEGATIVE (NEGATIVE); URINE LEUK ESTERASE NEGATIVE (NEGATIVE); URINE NITRITE - DIPSTICK NEGATIVE (Negative); URINE PROTEIN - DIPSTICK NEGATIVE (NEG-TRACE); URINE SPECIFIC GRAVITY 1.015; URINE UROBILINOGEN - DIPSTICK 0.2 E.U./dL (0.2)
[2022-06-12 10:54] VITALS: BP 136/75
[2022-06-12] MEDS ORDERED: TRAMADOL HYDROC50 M1 PO (10:55)
[2022-06-12] MEDS ORDERED: ZOFRAN4 MG/TAB PO (10:55)
== END 2022-06-12 10:54 | disposition left against medical advice (07) ==
LOC: ED 07:43 → ED-I 10:35 → ED 10:54
PROVIDERS: Family Medicine
DX: K85.90 Acute pancreatitis without necrosis or infection, unspecified (principal); N32.9 Bladder disorder, unspecified; I10 Essential (primary) hypertension; E78.5 Hyperlipidemia, unspecified; Z20.822 Contact with and (suspected) exposure to COVID-19; Z53.29 Procedure and treatment not carried out because of patient's decision for other reasons
CPT/HCPCS: Q9967; S0164

== ENCOUNTER 2022-07-07 21:26 | Emergency (ER) | payer MEDICARE, MEDICAID ==
[~2022-07-07] VITALS: Ht 170.2 cm; Wt 81.0 kg
[~2022-07-07 21:26] MED LIST changes: +TRAMADOL HYDROC50 M1 PO
[2022-07-07 23:12] LABS: BASO% 0.4 % (0-3); EOS% 1.7 % (0-8); HEMATOCRIT 43.7 % (39.0-50.0); HEMOGLOBIN 14.7 g/dl (14.0-18.0); IMMATURE GRANULOCYTES 0.4 % (0.0-5.0); LYMPH% 41.8 % (15-41); MEAN CELL VOLUME 95.8 fL CALC (80.0-100.0); MEAN CORPUSCULAR HGB 32.2 pG CALC (26.0-32.0); MEAN CORPUSCULAR HGB CONC 33.6 g/dL CAL (32.0-36.0); MONO% 6.9 % (2-13); NEUT# 3.63 thou/uL (1.82-7.42); NEUT% 48.8 % (42-76); RED BLOOD COUNT 4.56 mill/uL (4.70-6.10); RED CELL DISTRI WIDTH 12.9 % (11.5-15.5)
[2022-07-07 23:29] LABS: ALBUMIN 4.3 g/dL (3.2-5.0); ALKALINE PHOSPHATASE 69 u/l (38-126); ANION GAP 8 (6-22 (CALC)); BILIRUBIN, TOTAL 0.6 mg/dL (0.2-1.3); BUN 17 mg/dL (9-20); BUN/CREATININE RATIO 16 (12-20 (CALC)); CARBON DIOXIDE 28 mmol/l (22-30); CHLORIDE 107 mmol/l (95-108); GFR FOR AFR.AMER. > 60 ML/MIN (>=60 (CALC)); GFR OTHER RACES > 60 ML/MIN (>=60 (CALC)); POTASSIUM 3.8 mmol/l (3.5-5.1); SGOT/AST 27 u/l (17-59); SODIUM 138 mmol/l (137-146); TOTAL PROTEIN 7.4 g/dL (6.3-8.2)
[2022-07-07] MEDS ORDERED: FIORICET PO (23:42)
[2022-07-08 00:04] VITALS: BP 138/89
== END 2022-07-08 00:10 | disposition home or self-care (01) ==
LOC: ED 21:26
PROVIDERS: Emergency Medicine
DX: R51.9 Headache, unspecified (principal); I10 Essential (primary) hypertension

== ENCOUNTER 2022-07-28 18:18 | Emergency (ER) | payer MEDICARE, MEDICAID ==
[~2022-07-28] VITALS: Ht 170.2 cm; Wt 72.6 kg
[2022-07-28] VITALS (9 sets, daily range): BP systolic 104–158; BP diastolic 55–83
[~2022-07-28 18:18] MED LIST changes: +TAMSULOSIN HCL0.4 MG PO; +VITAMIN C1000 MG PO; +VITAMIN D-32000 UNI1 PO
[2022-07-28 19:42] LABS: BASO% 0.2 % (0-3); HEMATOCRIT 46.7 % (39.0-50.0); HEMOGLOBIN 15.7 g/dl (14.0-18.0); IMMATURE GRANULOCYTES 1.7 % (0.0-5.0); LYMPH% 9.9 % (15-41); MEAN CELL VOLUME 95.3 fL CALC (80.0-100.0); MEAN CORPUSCULAR HGB CONC 33.6 g/dL CAL (32.0-36.0); MONO% 5.6 % (2-13); NEUT# 9.41 thou/uL (1.82-7.42); NEUT% 82.6 % (42-76); RED BLOOD COUNT 4.9 mill/uL (4.70-6.10); RED CELL DISTRI WIDTH 13.7 % (11.5-15.5)
[2022-07-28 19:44] LABS: URINE BILIRUBIN - DIPSTICK NEGATIVE (NEGATIVE); URINE BLOOD DIPSTICK NEGATIVE (NEGATIVE); URINE COLOR YELLOW; URINE GLUCOSE - DIPSTICK NEGATIVE (NEGATIVE); URINE KETONE 15 mg/dL (NEGATIVE); URINE LEUK ESTERASE NEGATIVE (NEGATIVE); URINE PH >=9.0 (4.5-8.0); URINE PROTEIN - DIPSTICK 30 mg/dL (NEG-TRACE); URINE UROBILINOGEN - DIPSTICK 0.2 E.U./dL (0.2)
[2022-07-28 19:45] LABS: URINE NITRITE - DIPSTICK NEGATIVE (Negative)
[2022-07-28 19:52] LABS: URINE RBC 0-2 RBC/hpf (0-5)
[2022-07-28 20:46] LABS: ALBUMIN 4.3 g/dL (3.2-5.0); ALKALINE PHOSPHATASE 94 u/l (38-126); AMYLASE 140 u/l (30-110); ANION GAP 12 (6-22 (CALC)); BUN 14 mg/dL (9-20); BUN/CREATININE RATIO 15 (12-20 (CALC)); CARBON DIOXIDE 24 mmol/l (22-30); CHLORIDE 109 mmol/l (95-108); GFR FOR AFR.AMER. > 60 ML/MIN (>=60 (CALC)); GFR OTHER RACES > 60 ML/MIN (>=60 (CALC)); LIPASE 54 u/l (23-300); POTASSIUM 4.1 mmol/l (3.5-5.1); SGOT/AST 27 u/l (17-59); SODIUM 141 mmol/l (137-146); TOTAL PROTEIN 7.1 g/dL (6.3-8.2)
== END 2022-07-28 21:28 | disposition left against medical advice (07) ==
LOC: ED 18:18
PROVIDERS: Emergency Medicine
DX: R10.13 Epigastric pain (principal); R11.2 Nausea with vomiting, unspecified; I10 Essential (primary) hypertension; Z20.822 Contact with and (suspected) exposure to COVID-19; Z53.29 Procedure and treatment not carried out because of patient's decision for other reasons

== ENCOUNTER 2022-07-29 22:43 | Emergency (ER) | payer MEDICARE, MEDICAID ==
[~2022-07-29] VITALS: Ht 170.2 cm; Wt 75.0 kg
[2022-07-30 00:17] LABS: BASO% 0.2 % (0-3); EOS% 0.5 % (0-8); HEMATOCRIT 46.3 % (39.0-50.0); HEMOGLOBIN 15.1 g/dl (14.0-18.0); IMMATURE GRANULOCYTES 0.8 % (0.0-5.0); LYMPH% 24.1 % (15-41); MEAN CELL VOLUME 96.7 fL CALC (80.0-100.0); MEAN CORPUSCULAR HGB 31.5 pG CALC (26.0-32.0); MEAN CORPUSCULAR HGB CONC 32.6 g/dL CAL (32.0-36.0); MONO% 7.3 % (2-13); NEUT# 6.39 thou/uL (1.82-7.42); NEUT% 67.1 % (42-76); RED BLOOD COUNT 4.79 mill/uL (4.70-6.10); RED CELL DISTRI WIDTH 14.1 % (11.5-15.5)
[2022-07-30 00:36] LABS: ALKALINE PHOSPHATASE 92 u/l (38-126); AMYLASE 195 u/l (30-110); BUN 21 mg/dL (9-20); BUN/CREATININE RATIO 18 (12-20 (CALC)); CARBON DIOXIDE 23 mmol/l (22-30); CHLORIDE 108 mmol/l (95-108); CREATININE 1.2 mg/dL (0.7-1.3); GFR FOR AFR.AMER. > 60 ML/MIN (>=60 (CALC)); GFR OTHER RACES > 60 ML/MIN (>=60 (CALC)); LIPASE 296 u/l (23-300); SODIUM 139 mmol/l (137-146)
[2022-07-30 00:38] LABS: ANION GAP 14 (6-22 (CALC)); BILIRUBIN, TOTAL 2.2 mg/dL (0.2-1.3); POTASSIUM 5.7 mmol/l (3.5-5.1); SGOT/AST 55 u/l (17-59); TOTAL PROTEIN 8.7 g/dL (6.3-8.2)
[2022-07-30 00:45] VITALS: BP 152/77
[2022-07-30 01:00] VITALS: BP 150/75
[2022-07-30 01:52] VITALS: BP 166/89
[2022-07-30 01:55] LABS: URINE BILIRUBIN - DIPSTICK NEGATIVE (NEGATIVE); URINE BLOOD DIPSTICK NEGATIVE (NEGATIVE); URINE COLOR YELLOW; URINE GLUCOSE - DIPSTICK NEGATIVE (NEGATIVE); URINE KETONE 15 mg/dL (NEGATIVE); URINE LEUK ESTERASE NEGATIVE (NEGATIVE); URINE PROTEIN - DIPSTICK NEGATIVE (NEG-TRACE)
[2022-07-30 02:00] VITALS: BP 143/79
[2022-07-30 02:05] LABS: URINE NITRITE - DIPSTICK NEGATIVE (Negative)
[2022-07-30 04:01] VITALS: BP 123/71
[2022-07-30] MEDS ORDERED: LOMOTIL2.5 MG PO (04:18)
[2022-07-30] MEDS ORDERED: ONDANSETRON4 MG PO (04:18)
[2022-07-30 04:30] VITALS: BP 111/71
== END 2022-07-30 04:41 | disposition home or self-care (01) ==
LOC: ED 22:43
PROVIDERS: Emergency Medicine
DX: K52.9 Noninfective gastroenteritis and colitis, unspecified (principal); I10 Essential (primary) hypertension
CPT/HCPCS: Q9967

== ENCOUNTER 2022-09-20 16:21 | Emergency (ER) | payer MEDICARE, MEDICAID ==
[~2022-09-20 16:21] MED LIST changes: +LOMOTIL2.5 MG PO
== END 2022-09-20 16:52 | disposition left against medical advice (07) ==
LOC: ED 16:21 → LWOBS 16:52
DX: Z53.21 Procedure and treatment not carried out due to patient leaving prior to being seen by health care provider (principal)